=== PATIENT | female | born 1970 | race Caucasian/White ===

== ENCOUNTER 2020-06-08 10:40 | Outpatient (CLI) | payer OTHER, SELFPAY ==
[2020-06-08 11:56] LABS: Thyroid Stimulating Hormone 1.13 uIU/mL (0.36-3.74)
[2020-06-11 07:15] LABS: T4 Thyroxine 8.9 mcg/dL (5.1-11.9)
[2020-06-12 07:42] LABS: FSH 87.2 mIU/mL (***)
[2020-06-13 22:18] LABS: Testosterone Free 2.4 pg/mL (0.2-5.0)
== END 2020-06-08 10:41 | disposition home or self-care (01) ==
PROVIDERS: PCP Obstetrics & Gynecology; Visit Provider Obstetrics & Gynecology
DX: E28.319 Asymptomatic premature menopause (principal)
CPT/HCPCS: 36415; 83001; 83036; 84402; 84436; 84443

== ENCOUNTER 2020-07-19 16:59 | Outpatient (CLI) | payer OTHER, SELFPAY ==
--- NOTE | ~2020-07-19 | MM_ITS ---
EXAMINATION: MM scrn tank implant BI w garry HISTORY: Screening mammogram TECHNIQUE: Craniocaudal and mediolateral oblique 3-D tomosynthesis images with implant displacement a nd synthetic 2-D images were generated. Craniocaudal and mediolateral oblique views of the breasts wi thout implant displacement were obtained using full field digital mammography. CAD analysis was submi tted and interpreted. COMPARISON: None, baseline BREAST PARENCHYMAL COMPOSITION: There are scattered areas of fibroglandular density. FINDINGS: RIGHT BREAST: An asymmetry is present in the anterior third of the slightly inner breast 3 cm from th e nipple on the craniocaudal view. LEFT BREAST: There is no evidence of suspicious mass, calcification, or architectural distortion to s uggest malignancy. IMPRESSION: 1. Right breast asymmetry on the craniocaudal view. 2. Additional mammographic views and possible breast ultrasound are recommended to evaluate for malig sammy and establish a baseline given that this is the first mammographic examination. BI-RADS Category 0: Incomplete: Needs additional imaging evaluation. Reviewed, dictated and finalized at location A. IMPRESSION: 1. Right breast asymmetry on the craniocaudal view. 2. Additional mammographic views and possible breast ultrasound are recommended to evaluate for malignancy and establish a baseline given that this is the fir st mammographic examination. BI-RADS Category 0: Incomplete: Needs additional imaging evaluation.
== END 2020-07-19 17:00 | disposition home or self-care (01) ==
LOC: ANHIMG 17:01
PROVIDERS: PCP Obstetrics & Gynecology; Visit Provider Obstetrics & Gynecology
DX: Z12.31 Encounter for screening mammogram for malignant neoplasm of breast (principal); R92.8 Other abnormal and inconclusive findings on diagnostic imaging of breast
CPT/HCPCS: 77063; 77067

== ENCOUNTER → 2020-08-04 07:48 | Outpatient (CLI) | payer OTHER, SELFPAY ==
--- NOTE | ~2020-08-04 | MMUS_ITS ---
EXAMINATION: MM diagnostic mammo implant RT, US breast RT limited HISTORY: Follow-up right breast asymmetry TECHNIQUE: Additional 3-D tomosynthesis images of the right breast were performed and synthetic 2-D i mages were generated. CAD analysis was submitted and interpreted. High resolution Limited right breas t ultrasound was performed. COMPARISON: 07/19/2020 BREAST PARENCHYMAL COMPOSITION: Breast composed of scattered areas of fibroglandular density. FINDINGS: MAMMOGRAPHIC FINDINGS: There is a subglandular silicone implant. There are no suspicious masses, calcifications or oracle erp architect ural distortion in the right breast to suggest malignancy. ULTRASOUND: Limited periareolar ultrasound of the right breast: 4-5:00 near the areola there is a 7 mm lipoma. No suspicious masses to suggest malignancy. IMPRESSION: 1. No evidence for malignancy in the right breast. 2. Routine yearly screening mammogram and regular clinical breast examination are recommended. BI-RADS Category 2: Benign finding(s). Reviewed, dictated and finalized at location A. IMPRESSION: 1. No evidence for malignancy in the right breast. 2. Routine yearly screening mammogram and regular clinical breast examination a re recommended. BI-RADS Category 2: Benign finding(s).
== END ==
PROVIDERS: PCP Internal Medicine; Visit Provider Obstetrics & Gynecology
DX: R92.8 Other abnormal and inconclusive findings on diagnostic imaging of breast (principal)
CPT/HCPCS: 76642; 77065

== ENCOUNTER 2021-07-18 08:55 | Outpatient (CLI) | payer OTHER, SELFPAY ==
--- NOTE | ~2021-07-18 | XR_ITS ---
EXAMINATION: XR chest 2V 07/18/2021 09:20 INDICATION: Chest pain PROCEDURE: 2 view chest COMPARISON: No prior studies for comparison. FINDINGS: The lungs are clear. The cardiomediastinal silhouette is within normal limits. There are no pleural effusions. There is no pneumothorax suspected. IMPRESSION: 1: NO ACUTE CARDIOPULMONARY DISEASE. Reviewed, dictated and finalized at location A.
[2021-07-18 09:27] LABS: Basophils Absolute Auto 0.05 K/mm3 (0.00-0.10); Eosinophils Absolute Auto 0.15 K/mm3 (0.02-0.50); Eosinophils Percent Auto 2.9 % (1.0-6.0); Hematocrit 40.7 % (35.0-49.0); Hemoglobin 13.4 g/dL (12.0-15.0); Immature Granulocyte Absolute 0.02 K/mm3 (0.00-0.00); Immature Granulocyte Percent A 0.4 % (0.0-0.0); Lymphocytes Absolute Auto 1.63 K/mm3 (1.10-4.50); Mean Corpuscular HGB Conc 32.9 g/dL (32.0-36.0); Mean Corpuscular Hemoglobin 29.4 pg (27.0-31.0); Mean Corpuscular Volume 89.3 fL (78.0-102.0); Mean Platelet Volume 11.6 fl (9.2-11.8); Monocytes Percent Auto 3.8 % (2.0-11.0); Neutrophils Absolute Auto 3.2 K/mm3 (1.7-7.2); Neutrophils Percent Auto 60.9 % (50.0-70.0); Platelet Count Result 206 K/mm3 (150-420); Red Blood Count 4.56 M/mm3 (4.20-5.40); Red Cell Distribution Width 13.2 % (11.6-14.4); White Blood Count 5.3 K/mm3 (4.8-10.8)
[2021-07-18 09:32] LABS: Add Urine Microscopic? YES; Appearance Urine Sl Cloudy (Clear); Bilirubin Urine Negative (Negative); Blood Urine Negative (Negative); Color Urine Light Yellow (Yellow); Glucose Urine UA Negative (Negative); Ketones Urine Trace (Negative); Leukocyte Esterase Ur Negative (Negative); Nitrate Urine Negative (Negative); Protein Urine Negative (Negative); Urobilinogen Urine 0.2 mg/dL (0.2-1.0)
[2021-07-18 09:47] LABS: Bacteria Urine 1+ /hpf; Mucus Urine Few /lpf; RBC Urine None seen /hpf (0-2); Squamous Epithelial Cell Urine Moderate /hpf (Few); WBC Urine None seen /hpf (0-3)
[2021-07-18 10:27] LABS: Alanine Aminotransferase 37 U/L (14-59); Albumin Level 3.6 g/dL (3.4-5.0); Alkaline Phosphatase 72 U/L (46-116); Anion Gap 7 mmol/L (8-16); Aspartate Amino Transferase 25 U/L (15-37); Bilirubin,Total 0.4 mg/dL (0.00-1.00); Blood Urea Nitrogen 12 mg/dL (7-18); Calcium 8.5 mg/dL (8.5-10.1); Carbon Dioxide 29 mmol/L (21-32); Chloride 104 mmol/L (98-108); Cholesterol 235 mg/dL (0-200); Estimated Glomerular Filt Rate 58; Free T3 2.93 pg/mL (2.18-3.98); Glucose 101 mg/dL (70-99); HDL Direct 46 mg/dL (40-60); LDL Cholesterol Calculated 153 mg/dL (<130); Osmolality Calculated 289 mOsm/kg (285-295); Potassium 4.6 mmol/L (3.5-5.1); Sodium 140 mmol/L (136-145); Thyroid Stimulating Hormone 2.05 uIU/mL (0.36-3.74); Total Protein 6.9 g/dL (6.4-8.2); Triglycerides 179 mg/dL (0-150)
[2021-07-18 10:44] LABS: NT Pro B Type Natriuretic Pept 199 pg/mL (0-125)
== END 2021-07-18 08:56 | disposition home or self-care (01) ==
LOC: CHSLAB 08:57
PROVIDERS: PCP Internal Medicine; Visit Provider Internal Medicine
DX: Z00.00 Encounter for general adult medical examination without abnormal findings (principal); R00.2 Palpitations; R07.9 Chest pain, unspecified; R06.00 Dyspnea, unspecified
CPT/HCPCS: 36415; 71046; 80053; 80061; 81001; 83880; 84439; 84443; 84481; 85025

== ENCOUNTER 2021-10-30 15:35 | Outpatient (CLI) | payer BC, SELFPAY ==
[2021-10-30 16:41] LABS: SARS-CoV-2 Ag Positive (Negative)
== END 2021-10-30 15:36 | disposition home or self-care (01) ==
PROVIDERS: PCP Internal Medicine; Visit Provider Internal Medicine
DX: U07.1 COVID-19 (principal); J06.9 Acute upper respiratory infection, unspecified
CPT/HCPCS: 87426; C9803

== ENCOUNTER 2025-01-11 01:04 | Day surgery (SDC) | payer BC, SELFPAY ==
[2025-01-01 11:10] VITALS: BMI 36.3
--- OUTSIDE RECORDS SUMMARY | 2025-01-11 01:07 | XMS_ITS | Encounter Summary ---
Author Organization [facility] Address [facility] [place] [address] Care Team Providers Care Software Systems Analyst Name Role Phone Felipe Gold MD Primary Care Provider [phone] Yessy Mejia MD Unavailable Encounter Details Date Type Department Care Team (Late st Contact Info) Description 02/11/2023 Pre-Procedure Call [facility] [place] [address] Yessy Mejia MD [address] [place] [address] Social History Tobacco Use Types Packs/Day Years Used Date Smoking Tobacco: Former Cigarettes Q uit: 2018 Smokeless Tobacco: Never Alcohol Use Standard Drinks/Week Comments Yes 6 (1 standard drink = 0.6 oz pur e alcohol) Comments Unknown Sex and Gender Information Value Date Recorded Sex Assigned at Not on file Legal Sex Female 5:44 PM CDT Gender Identity Not on file Sexual Orientation Not on file documented as of this encounter Plan of Treatment Not on file documented as of this encounter Visit Diagnoses Not on filedocumented in this encounter Care Teams Software Systems Analyst Relationship Specialty Start Date End Date Felipe Gold MD [address] [place] [id number] PCP - General INTERNAL MEDICINE 01/04/22 Yessy Mejia MD [address] [place] [address] Consulting Physician CARDIOVASCULAR DISEASE 01/04/22 documented as of this encounter
--- OUTSIDE RECORDS SUMMARY | 2025-01-11 01:07 | XMS_ITS | Clinical Summary ---
Author Organization [facility] Address [facility] [place] [address] Care Team Providers Care Software Applications Designer Name Role Phone Felipe Gold MD Primary Care Provider [phone] Yessy Mejia MD Unavailable Allergies Active Allergy Reactions Criticality Noted Date Comments Latex Unknown 01/05/2022 Sulfanilamide Other (see comment) 01/05/2022 Infection or abcess Medications estradiol 1 MG tablet 10/31/2021 Active metFORMIN 500 MG tablet Take 500 mg by mouth in the morning and 500 mg in the evening. Take with meals. Active furosemide 20 MG tablet Take 1 tablet (20 mg total) by mouth in the morning. 3 tablet 03/12/2022 Active metoprolol tartrate 25 MG tablet Take 0.5 tablets (12.5 mg total) by mouth in the morning and 0.5 tablets (12.5 mg total) before bedtime. 90 tablet 3 03/12/2022 Active Active Problems No known active problems Family History Medical History Relation Comments Heart Attack Father Heart Attack Mother Open Heart Mother Stent Cardiac Mother Relation Status Comments Father Maternal Grandfather Maternal Grandmother Mother Paternal Grandfather Paternal Grandmother Social History Tobacco Use Types Packs/Day Years [...] on file Sexual Orientation Not on file Last Filed Vital Signs Vital Sign Reading Time Taken Comments Blood Pressure 118/87 03/12/2022 9:47 AM CDT Pulse 74 03/12/2022 9:47 AM CDT Temperature - - Respiratory Rate 20 03/12/2022 9:47 AM CDT Oxygen Saturation 100% 03/12/2022 9:47 AM CDT Inhaled Oxygen Concentration - - Weight 113.4 kg (250 lb) 03/12/2022 9:47 AM CDT Height 167.6 cm (5' 6 ) 03/12/2022 9:47 AM CDT Body Mass Index 40.35 03/12/2022 9:47 AM CDT Plan of Treatment Health Maintenance Due Date Last Done Comments Colorectal Cancer Screening Colonoscopy (10 Years) 1969 Annual Physical 1972 Hepatitis C 1987 Hepatitis B Vaccines (1 of 3 - 19+ 3-dose series) 1988 Mammogram Screening 2009 Zoster Vaccines (1 of 2) 2019 COVID-19 Vaccine ( - season) 2024 Influenza Adult (#1) 2024 07/06/2020 DTaP, Tdap and Td Vaccines (7 - Td or Tdap) 07/15/2029 07/15/2019, 06/11/1979, 03/19/1974, Additional history exists Meningococcal B Vaccine Aged Out No l onger eligible based on patient's age to complete this topic Meningococcal Vaccine Aged Out No hali antonietta eligible based on patient's age to complete this topic Pneumococcal Vaccine: Pediatrics (0 to 5 Years) and At-Risk Patients (6 to 64 Years) Aged Out No longer eligible based on patient's age to complete this topic RSV Immunizations Under 20 Months Aged Out No longer eligible based on patient's age to complete this topic Insurance [employer] Care Teams Software Applications Designer Relationship Specialty Start Date End Date Felipe Gold MD [address] [place] [address] PCP - General INTERNAL MEDICINE 01/04/22 Yessy Mejia MD [address] [place] [address] Consulting Physician CARDIOVASCULAR DISEASE 01/04/22
[2025-01-11 08:48] VITALS: BP 137/97; PULSE 83; RESP 18; TEMP 36.1; O2SAT 99
[2025-01-11] MEDS: LACTATED RINGERS 1,000 ML 150 ML IV CONT (08:56)
--- NOTE | 2025-01-11 09:08 | P.PNAN_ITS ---
Anes - Initial Pre Proc Eval Procedure: Operation Date: 01/11/25 10:00 Proposed Procedures p Screening Colonoscopy - Sharif Black DO Date/Time: 01/11/25 09:08 Surgeon: Sharif Black DO Pre Op Diagnosis: Screening for malignant neoplasm of colon Patient Data Age: 54 Gender: F Height: 1.68 m Weight: 102.1 kg Last Vital Signs Temp 97 F L 01/11/25 08:48 Pulse 83 01/11/25 08:48 Resp 18 01/11/25 08:48 BP 137/97 H 01/11/25 08:48 Pulse Ox 99 01/11/25 08:48 O2 Del Method Room Air 01/11/25 08:48 Allergies Allergy/AdvReac Type Severity Reaction Status Date / Time Sulfa (Sulfonamide Allergy Intermediate Difficulty Verified 01/11/25 08:44 Antibiotics) Breathing latex Allergy Mild Rash Verified 01/11/25 08:44 Home Medications ?Medication ?Instructions ?Recorded ?Confirmed ?Type estradiol 1 mg tablet 1 mg PO DAILY #90 tabs 10/31/21 01/01/25 Rx Bacillus subtilis 1.5 billion 2 tablet PO DAILY 01/01/25 01/11/25 History cell-inulin 1 gram chewable tablet (Culturelle Gummy) Fiber Gummies See Rx Instructions PO DAILY 01/01/25 01/11/25 History bupropion HCl 150 mg tablet,12 hr 150 mg PO Q12H 01/01/25 01/11/25 History sustained-release cholecalciferol (vitamin D3) 25 25 mcg PO DAILY 01/01/25 01/11/25 History mcg (1,000 unit) capsule (Vitamin D3) fluoxetine 10 mg tablet 10 mg PO DAILY 01/01/25 01/11/25 History montelukast 10 mg tablet 10 mg PO QPM 01/01/25 01/11/25 History multivitamin with minerals-folic 1 tablet PO DAILY 01/01/25 01/11/25 History acid 120 mcg chewable tablet (Women's Multivitamin Gummies) omeprazole 20 mg capsule,delayed 20 mg PO DAILY 01/01/25 01/11/25 History release tirzepatide (weight loss) 5 mg/0.5 5 mg subcut WEEKLY 01/01/25 01/11/25 History mL subcutaneous pen injector (Zepbound) Patient hx anesthesia problems: none Family hx anesthesia problems: none Results Review: All pre-operative results and documents have been reviewed as part of the pre- operative evaluation. [facility] Past Medical History Medical History Diverticulosis Migraine Surgical History Surgical History H/O bilateral breast reduction surgery S/P abdominoplasty H/O: hysterectomy S/P breast augmentation S/P endometrial ablation Family History Family History Mother History of blood clots Diabetes mellitus Acute myocardial infarction Social History Social History Smoking packs per day: 1 Smoking cigarettes per day: 20.0 Years smoked: 20 Smoking pack-years: 20.00 Smoking status: Current every day smoker Tobacco type: cigarettes Alcohol intake: current Drinks per week: 5 Substance use: never Living arrangements: with family Additional living arrangements comments: Spiritual care concerns: No Anes - Eval Final PreProcedure Day of Procedure 01/11/25 09:08 Patient weight: obese Lungs: normal air movement Airway: Mallampati scale class II Neurological: alert and oriented Last oral intake: >/= 8 hours ASA classification: II Emergent: no Anesthetic plan: proceed Anesthesia type and monitoring: general GIVS and standard monitoring Results Review: All pre-operative results and documents have been reviewed as part of the pre- operative evaluation. BMI 36, pt vapes daily, GLP1 and off 11 days. Informed Consent: The patient's anesthetic plan and its attendant risks and benefits were discussed with the patient/family/POA. Questions were solicited and answers provided to the satisfaction of the patient/family/POA.
--- NOTE | 2025-01-11 09:23 | P.HP_ITS ---
H&P: HPI History of Present Illness Date/Time: 01/11/25 09:23 Chief Complaint: screening for colorectal cancer Narrative: this is a 54-year-old woman who presents for colonoscopy. She denies any hematochezia or melena. She denies any family history of colon cancer. She has not had a colonoscopy before. Review of Systems Review of Systems: All systems reviewed & are unremarkable except as noted in HPI and below Constitutional: Constitutional: Denies chills, Denies fever(s), Denies headache(s) and Denies weight loss Eyes: Eyes: Denies change in vision ENT: Denies dizziness, Denies headache(s), Denies neck mass and Denies throat swelling Cardiovascular: Cardiovascular: Denies chest pain, Denies lightheadedness and Denies dyspnea Respiratory: Respiratory: Denies cough, Denies dyspnea and Denies wheezing Gastrointestinal: Gastrointestinal: Denies abdominal pain, Denies change in bowel habits, Denies nausea and Denies vomiting Genitourinary: Genitourinary: Denies hematuria and Denies dysuria Musculoskeletal: Musculoskeletal: Reports as per HPI Integumentary/Breasts: Skin/Breast: Reports as per HPI Neurologic: Denies dizziness and Denies headache(s) Allergic/Immunologic: Allergic/Immunologic: Denies throat swelling and Denies wheezing [facility] Past Medical History Medical History (Updated 01/11/25 @ 09:24 by Sharif Black DO) Diverticulosis Migraine Surgical History Surgical History H/O bilateral breast reduction surgery S/P abdominoplasty H/O: hysterectomy S/P breast augmentation S/P endometrial ablation Family History Family History Mother History of blood clots Diabetes mellitus Acute myocardial infarction Social History Social History Smoking packs per day: 1 Smoking cigarettes per day: 20.0 Years smoked: 20 Smoking pack-years: 20.00 Smoking status: Current every day smoker Tobacco type: cigarettes Alcohol intake: current Drinks per week: 5 Substance use: never Living arrangements: with family Additional living arrangements comments: Spiritual care concerns: No Meds Home Medications and Allergies Home Medications ?Medication ?Instructions ?Recorded ?Confirmed ?Type estradiol 1 mg tablet 1 mg PO DAILY #90 tabs 10/31/21 01/01/25 Rx Bacillus subtilis 1.5 billion 2 tablet PO DAILY 01/01/25 01/11/25 History cell-inulin 1 gram chewable tablet (Culturelle Gummy) Fiber Gummies See Rx Instructions PO DAILY 01/01/25 01/11/25 History bupropion HCl 150 mg tablet,12 hr 150 mg PO Q12H 01/01/25 01/11/25 History sustained-release cholecalciferol (vitamin D3) 25 25 mcg PO DAILY 01/01/25 01/11/25 History mcg (1,000 unit) capsule (Vitamin D3) fluoxetine 10 mg tablet 10 mg PO DAILY 01/01/25 01/11/25 History montelukast 10 mg tablet 10 mg PO QPM 01/01/25 01/11/25 History multivitamin with minerals-folic 1 tablet PO DAILY 01/01/25 01/11/25 History acid 120 mcg chewable tablet (Women's Multivitamin Gummies) omeprazole 20 mg capsule,delayed 20 mg PO DAILY 01/01/25 01/11/25 History release tirzepatide (weight loss) 5 mg/0.5 5 mg subcut WEEKLY 01/01/25 01/11/25 History mL subcutaneous pen injector (Zepbound) Allergies Allergy/AdvReac Type Severity Reaction Status Date / Time Sulfa (Sulfonamide Allergy Intermediate Difficulty Verified 01/11/25 08:44 Antibiotics) Breathing latex Allergy Mild Rash Verified 01/11/25 08:44 Vital Signs Vital Signs - 24 hr 01/11/25 08:48 Temperature 97 F L Pulse Rate 83 Respiratory Rate 18 Blood Pressure 137/97 H Pulse Oximetry 99 Oxygen Delivery Room Air Exam Const: General: no acute distress and alert Orientation/consciousness: patient oriented x3 HENMT: Head: normocephalic and atraumatic Ears: hearing grossly normal bilaterally Face/Nose/Sinus: Normal nares present Mouth: Yes Normal oral and palatal mucosa present Eyes: Periorbital: periorbital findings normal Sclera: sclerae normal EOM: EOMs intact bilaterally Neck: Neck: normal visual inspection, no lymphadenopathy and trachea midline Chest: Chest palpation & inspection: normal inspection of the chest Resp: Effort & Inspection: normal respiratory effort Auscultation: clear to auscultation bilaterally Cardio: Jugular venous distension: no JVD Rate: regular rate Rhythm: regular rhythm Heart sounds: S1 normal heart sound present and S2 normal heart sound present Peripheral pulses: Peripheral pulses 2+ throughout GI: Inspection: normal to inspection GI Palp: Yes Soft to palpation, No Tenderness to palpation present (GI), No Guarding due to palpation present (GI) and No Rebound tenderness present Percussion: Yes normal to percussion Auscultation: normal bowel sounds : General: Yes no CVA tenderness Back/Spine/Pelvis: Back: no CVA tenderness Neuro: General: patient oriented x3, no focal motor deficits and CN's II-XI intact bilaterally Cognition (Neuro): normal cognition Speech: normal speech Motor exam (neuro): 5/5 motor strength present throughout Extrem: General: capillary refill normal and no clubbing, cyanosis or edema Assessment and Plan Assessment and plan (1) Screening for colorectal cancer: Code(s): Z12.11 - Encounter for screening for malignant neoplasm of colon; Z12.12 - Encounter for screening for malignant neoplasm of rectum Status: Acute Assessment and Plan: I have recommended colonoscopy. I have discussed the procedure, risks, benefits, and alternatives. Questions were answered. Patient is agreeable to proceed.
[2025-01-11 09:46] VITALS: BP 123/76; PULSE 81; RESP 22; O2SAT 99
[2025-01-11 09:56] VITALS: BP 125/78; PULSE 78; RESP 18; O2SAT 99
== END 2025-01-11 10:14 | disposition home or self-care (01) ==
PROVIDERS: PCP Internal Medicine; Visit Provider Surgery
PROC: 0DJD8ZZ Inspection of Lower Intestinal Tract, Via Natural or Artificial Opening Endoscopic (ICD-10-PCS; CPT 45378; principal; 2025-01-11 10:00)
DX: Z12.11 Encounter for screening for malignant neoplasm of colon (principal); D12.4 Benign neoplasm of descending colon; K64.8 Other hemorrhoids; K57.30 Diverticulosis of large intestine without perforation or abscess without bleeding; F17.210 Nicotine dependence, cigarettes, uncomplicated; E66.9 Obesity, unspecified; Z68.36 Body mass index [BMI] 36.0-36.9, adult; Z79.85 Long-term (current) use of injectable non-insulin antidiabetic drugs; Z98.890 Other specified postprocedural states; Z98.891 History of uterine scar from previous surgery; Z87.19 Personal history of other diseases of the digestive system; Z82.49 Family history of ischemic heart disease and other diseases of the circulatory system
CPT/HCPCS: 45385; 88305; J2003; J2704; J7120

== ENCOUNTER 2025-09-23 09:26 | Outpatient (CLI) | payer BC, SELFPAY ==
--- NOTE | ~2025-09-23 | CT_ITS ---
EXAMINATION: CT sinus wo con DATE: 09/23/2025 09:43 INDICATION: Chronic sinusitis TECHNIQUE: Computed tomography (CT) of the paranasal sinuses was performed without intravenous contrast. The dose-length product was 277.28 mGy-cm. Automated exposure control and iterative reconstruction technique were employed. COMPARISON: None FINDINGS: There is mucosal thickening of the left sphenoid sinus. Rightward nasal septal deviation. Ostiomeatal units are patent. No air-fluid levels. Mastoids are pneumatized. No mucoperiosteal reaction. IMPRESSION: 1. Mild left sphenoid sinus disease. Reviewed, dictated and finalized at location I. ANALYST
== END 2025-09-23 09:27 | disposition home or self-care (01) ==
LOC: CHSIMG 09:27
PROVIDERS: PCP Internal Medicine; Visit Provider Otolaryngology
DX: J32.3 Chronic sphenoidal sinusitis (principal)
CPT/HCPCS: 70486

== ENCOUNTER 2025-10-04 15:57 | Outpatient (CLI) | payer BC, SELFPAY ==
--- NOTE | ~2025-10-04 | XR_ITS ---
EXAMINATION: XR chest 2V, 10/04/2025 16:02 OFFICE CLEANER HISTORY: R05.3 - Chronic cough; non smoker COMPARISON: No comparisons available. Technique: 2 views obtained. Findings: The lungs are clear, no effusion. No pneumothorax. Heart is normal size. Mediastinal and hilar contours are within normal limits. Bony thorax no acute abnormality. Impression: No acute cardiopulmonary abnormality. Reviewed, dictated and finalized at location P. CE CLEANER Impression: No acute cardiopulmonary abnormality.
== END 2025-10-04 15:58 | disposition home or self-care (01) ==
LOC: GOSHIMG 15:57
PROVIDERS: PCP Internal Medicine; Visit Provider Otolaryngology
DX: R05.3 Chronic cough (principal)
CPT/HCPCS: 71046